=== PATIENT | female | born 1990 | race Caucasian/White ===

== ENCOUNTER 2016-03-10 14:37 | Inpatient (IN) | payer OTHER ==
[~2016-03-10] VITALS: Ht 160 cm; Wt 85.1 kg
[~2016-03-10 14:37] MED LIST: AMBIEN10 MG PO; ATIVAN1 MG PO; AUGMENTIN875 MG PO; BRINTELLIX20 MG PO; BUPRENORPHINE HC2 MG PO; BUSPAR10 MG PO; CARVEDILOL6.25 MG PO; CIPRO500 MG PO; CIPRODEX OTIC7.5 ML LEFT EAR; COREG12.5 M1 PO; COREG6.25 M1 PO; CYCLOBENZAPRINE10 MG PO; DAILY VALUE1 EACH PO; DESYREL100 MG PO; FLUOXETINE HCL10 MG PO; FUROSEMIDE20 MG PO; GABAPENTIN300 MG PO; HYDROXYZINE PAM50 MG PO; IRON325 M1 PO; K-DUR10 MEQ PO; LAMOTRIGINE200 MG PO; LATUDA60 MG PO; LIPITOR40 MG PO; LISINOPRIL5 MG PO; MAALOX ADVANCE355 ML PO; MELATONIN3 MG PO; MOTRIN IB200 MG PO; MOTRIN600 MG PO; NAPROSYN500 MG PO; NAPROXEN500 MG PO; NITROFURANTOIN100 M3 PO; OLANZAPINE5 MG PO; ONDANSETRON HCL4 MG PO; PERCOCET 5/31 TABLET PO; PRAZOSIN HCL1 MG PO; PRENATAL TABLE1 EAC3 PO; PRENATAL VITAM1 EAC6 PO; PRILOSEC20 MG PO; PROMETHAZINE HC25 M1 PO; PROVIGIL200 MG PO; SUBOXONE 12 MG1 EACH SL; SUBOXONE 8 MG-1 EAC2 SL; TRAZODONE HCL150 MG PO; VALIUM5 MG PO; VENTOLIN HFA18 GM IH; VYVANSE40 MG PO; VYVANSE70 MG PO; ZESTRIL10 MG PO; ZOFRAN ODT4 MG PO; ZOFRAN4 MG PO; ZOVIRAX400 MG PO
[2016-03-10 15:53] LABS: MCH 28.5 PG (29.0-34.0); MCHC 34.7 G/DL (30.0-36.0); MCV 82.3 FL (83-99); MEAN PLAT.VOLUME 10.1 uM^3 (9.5-12.4); PLATELET COUNT 280 K/uL (156-360); RBC DIS.WIDTH-CV 13.3 % (11.8-14.6); RBC DIS.WIDTH-SD 39.7 % (39-53); RED BLOOD COUNT 5.47 M/uL (3.80-5.20); WHITE BLOOD COUNT 20.6 K/uL (4.1-10.2)
[2016-03-10 16:01] LABS: CHLORIDE 103 mEq/L (99-109); POTASSIUM 4.3 mEq/L (3.7-5.4); SODIUM 137 mEq/L (136-147)
[2016-03-10 16:03] LABS: GLUCOSE 113 mg/dL (70-99)
[2016-03-10 16:04] LABS: ANION GAP 11 MEQ/L (2-14)
[2016-03-10 16:05] LABS: TOTAL BILIRUBIN 0.9 mg/dL (0.0-1.0)
[2016-03-10 16:07] LABS: ALKALINE PHOSPHATASE 98 IU/L (3-129); GFR ESTIMATE (CALCULATED) > 59 mL/min/
[2016-03-10 16:08] LABS: UREA NITROGEN (BUN) 10 mg/dL (9-23)
[2016-03-10 16:08] LABS: ADD MIUA? YES; BILIRUBIN NEGATIVE; BLOOD MODERATE; COLOR YELLOW ((YELLOW)); GLUCOSE (STRIP) NEGATIVE; KETONES NEGATIVE; LEUKOCYTES LARGE; NITRITE POSITIVE; PH, URINE 6.5 (5-8); PROTEIN (STRIP) 100; SPECIFIC GRAVITY 1.015 (1.000-1.030); UROBILINOGEN 0.2 MG/DL (0.2-1.0)
[2016-03-10 16:12] LABS: INTERNAL CONTROL VALID? YES
[2016-03-10 16:24] LABS: WHITE BLOOD CELLS TNTC /HPF (0-5)
[2016-03-10 16:25] LABS: UCUL ADDED? YES
[2016-03-10 19:31] VITALS: BP 117/64
[2016-03-10 23:52] VITALS: BP 102/56
[2016-03-11 04:20] VITALS: BP 99/67
[2016-03-11 06:39] LABS: ANION GAP 16 MEQ/L (2-14); CHLORIDE 105 MEQ/L (99-109); GFR ESTIMATE (CALCULATED) > 59 mL/min/; GLUCOSE 93 mg/dL (70-99); SAMPLE HEMOLYSIS CHECK 0; SAMPLE ICTERIC CHECK 0; SAMPLE LIPEMIA CHECK 0; SODIUM 139 MEQ/L (136-147); UREA NITROGEN (BUN) 10 mg/dL (9-23)
[2016-03-11 06:43] LABS: EOSINOPHIL (%) 0.5 % (0-5); EOSINOPHIL COUNT 0.1 K/uL (0-0.3); HEMATOCRIT 46.3 % (36.0-46.0); IMMATURE GRANULOCYTE (%) 0.3 % (0.0-0.7); IMMATURE GRANULOCYTE COUNT 0.1 K/uL; LYMPHOCYTE COUNT 1.9 K/uL (1.0-2.8); MCH 27.9 PG (29.0-34.0); MCHC 32.2 G/DL (30.0-36.0); MONOCYTE (%) 8.5 % (3-12); MONOCYTE COUNT 1.5 K/uL (0-0.8); NEUTROPHIL (%) 79.6 % (45-76); NEUTROPHIL COUNT 14.2 K/uL (1.8-6.4); RBC DIS.WIDTH-CV 13.7 % (11.8-14.6); RBC DIS.WIDTH-SD 43.4 % (39-53); RED BLOOD COUNT 5.34 M/uL (3.80-5.20); WHITE BLOOD COUNT 17.9 K/uL (4.1-10.2)
[2016-03-11 06:47] LABS: MCV 86.7 FL (83-99)
[2016-03-11 06:49] LABS: POTASSIUM 5.2 MEQ/L (3.7-5.4)
[2016-03-11 08:00] VITALS: BP 101/72
[2016-03-11 08:15] LABS: MEAN PLAT.VOLUME 10.8 uM^3 (9.5-12.4); PLAT.SUFFICIENCY ADEQUATE
[2016-03-11 08:25] LABS: PLATELET COUNT 183 K/uL (156-360)
[2016-03-11 12:00] VITALS: BP 116/68
[2016-03-11 16:00] VITALS: BP 124/68
[2016-03-11 19:03] VITALS: BP 123/66
[2016-03-12 01:16] VITALS: BP 103/59
[2016-03-12 04:30] VITALS: BP 112/56
[2016-03-12 08:00] VITALS: BP 153/74
[2016-03-12 12:30] VITALS: BP 141/81
[2016-03-12 16:00] VITALS: BP 135/74
[2016-03-12 20:20] VITALS: BP 131/92
[2016-03-13 00:05] VITALS: BP 141/84
[2016-03-13 04:42] VITALS: BP 148/84
[2016-03-13 08:00] VITALS: BP 159/88
[2016-03-13 12:00] VITALS: BP 171/92
[2016-03-13 16:00] VITALS: BP 140/83
[2016-03-13 20:00] VITALS: BP 177/92
[2016-03-14 00:15] VITALS: BP 132/78
[2016-03-14 01:40] VITALS: BP 129/84
[2016-03-14 08:12] VITALS: BP 140/88
[2016-03-14] MEDS ORDERED: NICOTINE PATCH1 EAC2 TD (09:01)
[2016-03-14] MEDS ORDERED: CIPRO500 MG PO (09:01)
[2016-03-14 09:19] LABS: ANION GAP 9 MEQ/L (2-14); CHLORIDE 107 MEQ/L (99-109); GFR ESTIMATE (CALCULATED) > 59 mL/min/; GLUCOSE 104 mg/dL (70-99); MCH 27.5 PG (29.0-34.0); MCHC 32.3 G/DL (30.0-36.0); MEAN PLAT.VOLUME 10.7 uM^3 (9.5-12.4); RBC DIS.WIDTH-CV 13.6 % (11.8-14.6); RED BLOOD COUNT 4.59 M/uL (3.80-5.20); SAMPLE HEMOLYSIS CHECK 0; SAMPLE ICTERIC CHECK 0; SAMPLE LIPEMIA CHECK 0; SODIUM 143 MEQ/L (136-147); UREA NITROGEN (BUN) 10 mg/dL (9-23)
[2016-03-14 09:20] LABS: PLATELET COUNT 250 K/uL (156-360); WHITE BLOOD COUNT 11.4 K/uL (4.1-10.2)
[2016-03-14 09:21] LABS: POTASSIUM 4.1 MEQ/L (3.7-5.4)
== END 2016-03-14 12:49 | disposition home or self-care (01) | DRG 690 ==
LOC: EME 14:37 → EXP 14:37 → EDOF 17:40 → 5WEST 17:40 → 5EAST 03-14 01:38
PROVIDERS: Hospitalist; Internal Medicine; Nurse Practitioner Family
DX: N10 Acute pyelonephritis (principal); R78.81 Bacteremia; F11.20 Opioid dependence, uncomplicated; B96.20 Unspecified Escherichia coli [E. coli] as the cause of diseases classified elsewhere
CPT/HCPCS: 80048; 80053; 81003; 83605; 84703; 85025; 85027; 87040; 87077; 87086; 87186; 87801; 99281; 99285; G0378; J0571; J0696; J1200; J1885; J2765; J2930; J3370; J7030; J7050

== ENCOUNTER 2016-04-19 18:09 | Emergency (ER) | payer OTHER ==
[~2016-04-19] VITALS: Ht 160 cm; Wt 82.1 kg
[~2016-04-19 18:09] MED LIST changes: +NICOTINE PATCH1 EAC2 TD
[2016-04-19 18:33] LABS: HEMATOCRIT 39.7 % (36.0-46.0); MCH 28.2 PG (29.0-34.0); MCHC 34.8 G/DL (30.0-36.0); MCV 81.2 FL (83-99); MEAN PLAT.VOLUME 9.9 uM^3 (9.5-12.4); PLATELET COUNT 221 K/uL (156-360); RBC DIS.WIDTH-CV 13.7 % (11.8-14.6); RBC DIS.WIDTH-SD 39.3 % (39-53); RED BLOOD COUNT 4.89 M/uL (3.80-5.20); WHITE BLOOD COUNT 13.6 K/uL (4.1-10.2)
[2016-04-19 18:42] LABS: CHLORIDE 105 mEq/L (99-109); POTASSIUM 4.3 mEq/L (3.7-5.4); SODIUM 139 mEq/L (136-147)
[2016-04-19 18:45] LABS: GLUCOSE 93 mg/dL (70-99)
[2016-04-19 18:46] LABS: ANION GAP 10 MEQ/L (2-14)
[2016-04-19 18:47] LABS: TOTAL BILIRUBIN 0.4 mg/dL (0.0-1.0)
[2016-04-19 18:48] LABS: ALKALINE PHOSPHATASE 88 IU/L (3-129)
[2016-04-19 18:49] LABS: GFR ESTIMATE (CALCULATED) > 59 mL/min/
[2016-04-19 18:50] LABS: UREA NITROGEN (BUN) 13 mg/dL (9-23)
[2016-04-19 18:52] LABS: ADD MIUA? YES; BILIRUBIN NEGATIVE; BLOOD NEGATIVE; COLOR YELLOW ((YELLOW)); GLUCOSE (STRIP) NEGATIVE; KETONES NEGATIVE; LEUKOCYTES TRACE; NITRITE NEGATIVE; PROTEIN (STRIP) NEGATIVE; SPECIFIC GRAVITY 1.014 (1.000-1.030); UROBILINOGEN 0.2 MG/DL (0.2-1.0)
[2016-04-19 18:57] LABS: QUANTITATIVE HCG < 4.0 MIU/ML
[2016-04-19 19:21] LABS: BACTERIA NONE SEEN /HPF; EPITHELIAL CELLS RARE /HPF; MUCUS NONE SEEN /LPF; RED BLOOD CELLS 0-5 /HPF (0-5); UCUL ADDED? NO
[2016-04-19] MEDS ORDERED: TYLENOL WITH C1 EACH PO (21:13)
[2016-04-19 21:21] VITALS: BP 119/62
[2016-04-21] MEDS ORDERED: BUPRENORPHINE SL (19:51)
[2016-04-21] MEDS ORDERED: PRAZOSIN HCL1 MG PO (19:52)
[2016-04-21] MEDS ORDERED: VYVANSE40 MG PO (19:53)
[2016-04-21] MEDS ORDERED: GABAPENTIN800 MG PO (19:53)
== END 2016-04-19 21:22 | disposition home or self-care (01) ==
LOC: EME 18:09
PROVIDERS: Physician Assistant
DX: N10 Acute pyelonephritis (principal)
CPT/HCPCS: 76770; 80053; 81003; 83605; 84702; 85027; 87040; 87077; 87086; 99281; 99285; J0696; J2405; J3010; J7030; J7050